=== PATIENT | male | born 1965 | race Two or more races ===

== ENCOUNTER 2019-04-24 12:52 | Emergency (ER) | payer SELFPAY ==
[~2019-04-24] VITALS: Ht 177.8 cm; Wt 96.2 kg
[2019-04-24 12:55] VITALS: BP 143/88
== END 2019-04-24 13:15 | disposition home or self-care (01) ==
LOC: ER 12:52
DX: L03.116 Cellulitis of left lower limb (principal); E10.9 Type 1 diabetes mellitus without complications